=== PATIENT | female | born 1990 | race Caucasian/White ===

== ENCOUNTER 2021-07-09 12:27 | Inpatient (IN) ==
[2021-07-09] MEDS ORDERED: Nicotine GUM 2MG FRUIT FLAVOR PO PRN (13:30)
[2021-07-09] MEDS: Nicotine PATCH 14 MG/24 HR PATCH TRANSDERM SCH (20:14)
[2021-07-10 07:53] LABS: HDL Cholesterol 62.6 mg/dL
[2021-07-10] MEDS: Multivitamins/Minerals TAB PO SCH (09:19)
[2021-07-10] MEDS: Nicotine PATCH 14 MG/24 HR PATCH TRANSDERM SCH (09:19)
[2021-07-10 11:58] LABS: Albumin 4.5 g/dL (3.2-5.2); Calcium 9.6 mg/dL (8.6-10.3); Potassium 3.9 mmol/L (3.5-5.0); Total Bilirubin 0.8 mg/dL (0.2-1.0)
[2021-07-10 12:04] LABS: Albumin/Globulin Ratio 2.1 (1-3); Globulin 2.1 g/dL (2-4); Total Protein 6.6 g/dL (6.4-8.9); eGFR CKD-EPI 99.5 (>60)
[2021-07-10 12:50] LABS: ABS Eosinophils 0.2 10^3/ul (0-0.6); ABS Lymphocytes 1.8 10^3/ul (1.0-4.8); ABS Monocytes 0.5 10^3/ul (0-0.8); ABS Neutrophils 2.3 10^3/ul (1.5-7.7); Eosinophil % 5.1 %; Hematocrit 41 % (35-47); Lymphocyte % 37.1 %; Mean Corpuscular HGB Conc 34 g/dL (31-36); Mean Corpuscular Hemoglobin 35 pg (27-31); Mean Corpuscular Volume 104 fL (80-97); Mean Platelet Volume 8.5 fL (7.4-10.4); Platelet Count 197 10^3/uL (150-450); Red Blood Count 3.98 10^6 /uL (3.70-4.87); Red Cell Distribution Width 15 % (10-15); White Blood Count 4.9 10^3/uL (3.5-10.8)
[2021-07-10 12:51] LABS: TSH Ultra Thyroid Stim Horm 6.82 mcIU/mL (0.34-5.60)
[2021-07-10 13:06] LABS: Vitamin D Total 25(OH) 28.2 ng/mL (20-50)
[2021-07-10 15:54] LABS: Free T4 0.58 ng/dL (0.61-1.12)
[2021-07-10 16:05] LABS: Folate 8.45 ng/mL (5.90-24.80)
[2021-07-11] MEDS: Nicotine PATCH 14 MG/24 HR PATCH TRANSDERM SCH (09:04)
[2021-07-11] MEDS: Multivitamins/Minerals TAB PO SCH (09:05)
[2021-07-11] MEDS: Al Hydrox/Mg Hydrox/Simet LIQ 30 ML UDC PO PRN ×2 (10:10→20:27)
[2021-07-12] MEDS: Nicotine PATCH 14 MG/24 HR PATCH TRANSDERM SCH (08:54)
[2021-07-12] MEDS: Multivitamins/Minerals TAB PO SCH (08:54)
[2021-07-13] MEDS: Multivitamins/Minerals TAB PO SCH (08:38)
[2021-07-13] MEDS: Nicotine PATCH 14 MG/24 HR PATCH TRANSDERM SCH (08:39)
[2021-07-13] MEDS: Al Hydrox/Mg Hydrox/Simet LIQ 30 ML UDC PO PRN (09:42)
[2021-07-13 10:08] VITALS: BP 113/80
== END 2021-07-13 15:30 | disposition home or self-care (01) | DRG 754 ==
LOC: BSU 13:42
PROVIDERS: ADMIT Psychiatry & Neurology Psychiatry; ATTEND Psychiatry & Neurology Psychiatry